=== PATIENT | male | born 1975 | race Caucasian/White ===

== ENCOUNTER 2022-11-05 21:57 | Emergency (ER) | payer MEDICARE, SELFPAY ==
[2022-11-05 22:05] VITALS: BP 130/82; PULSE 112; RESP 24; TEMP 36.6; O2SAT 98; BMI 25.7
--- NOTE | 2022-11-05 22:14 | PC.NURSE ---
Admission called asking is family could come back, let them know it was ok to let 1 person back.
[2022-11-05 22:16] LABS: Chloride 97 mmol/L (98-107); Potassium 3.8 mmoL/L (3.5-5.1); Sodium 140 mmol/L (136-145)
--- NOTE | 2022-11-05 22:16 | PC.NURSE ---
Pt pulled off his monitoring devices and walking into hallway stating since y'all are gonna let me in there and not let my family back I am leaving . He was refusing to let staff take him back to his room. We notified him that his family was told he can have a visitor and were only waiting for them to come back. He accused staff of not allowing his family back. Pt still had his IV in place and did allow us to escort him back to his room so we could removed the IV. rubber goods supervisor, SILVIO Vasques RN, at bedside with staff and assisting in de-escalating pt. His family then presented to room and we were able to place him back in bed and re-connected to the lunchroom monitor. Pt given a new gown, socks, ad several warm blankets. IV fluids also started since pt is now agreeing to stay.
[2022-11-05 22:19] LABS: Alanine Aminotransferase 34 U/L (12-78); Albumin Level 4.1 g/dl (3.5-5.0); Albumin/Globulin Ratio 1.7 (1.1-1.8); Alkaline Phosphatase 64 U/L (38-126); Anion Gap 19.8 mEq/L (5-15); Aspartate Amino Transferase 41 U/L (17-59); Bilirubin,Total 0.3 mg/dl (0.2-1.3); Blood Urea Nitrogen 13 mg/dl (9-20); Calcium 9.1 mg/dl (8.4-10.2); Carbon Dioxide 27 mmol/L (22.0-30.0); Creatinine Clearance Estimated 121 mL/min (50-200); Estimated Glomerular Filt Rate 90 ml/min (>60); GFR (African American) 109 ML/MIN (>60); Globulin 2.4 g/dL (1.3-3.2); Glucose 193 mg/dl (74-100); Total Protein,Serum 6.5 g/dl (6.3-8.2)
--- NOTE | 2022-11-05 22:24 | PC.NURSE ---
Police arrived to ED, contraband given to police and fire dispatcher by boiler house supervisor SILVIO Vasques
[2022-11-05 22:30] VITALS: BP 131/97; PULSE 112; RESP 14; O2SAT 98
--- NOTE | 2022-11-05 22:53 | XR_ITS ---
PROCEDURE INFORMATION: Exam: XR Chest Exam date and time: 11/05/2022 11:25 PM Age: 47 years old Clinical indication: Screening exam; Other screening; Additional info: Post overdose and narcan TECHNIQUE: Imaging protocol: Radiologic exam of the chest. Views: 1 view. COMPARISON: No relevant prior studies available. FINDINGS: Lungs: Mild left lower lung atelectasis. Pleural spaces: Unremarkable. No pleural effusion. No pneumothorax. Heart/Mediastinum: Unremarkable. No cardiomegaly. Bones/joints: Unremarkable. Gastrointestinal tract: Gaseous distention of the stomach. IMPRESSION: No acute findings.
[2022-11-05 23:00] VITALS: BP 111/77; RESP 14
--- NOTE | 2022-11-05 23:10 | PC.NURSE ---
RAD at for CXR
--- NOTE | 2022-11-05 23:22 | PC.NURSE ---
Pt provided with urinal. Urine sample obtained.
--- NOTE | 2022-11-05 23:25 | HMH.EDOD ---
Discharge Plan Disposition Patient Disposition: Home, Self-Care Condition: Good Prescriptions Prescriptions: New naloxone [Narcan] 4 mg/actuation spray,non-aerosol 4 mg intranasal Q2M PRN (Reason: opioid overdose) Qty: 2 0RF Rx Instructions: spray 1 dose into ONE nostril; alternate nostrils w each dose until help arrives Referrals Follow up/Referrals: Stephon Davalos MD [Primary Care Provider] - See instructions Activity Restrictions/Add. Instructions Additional Instructions/Restrictions: Recommend cessation from illegal drug substances. Fill the prescription for Narcan to have in the event of accidental overdose. Return to the ER for any new or worsening symptoms. Clinical Impressions Clinical Impression: Drug overdose Instructions Patient Instructions: DI for Drug Overdose in Adults Discharge ED Provider: Mikie Lozano Overdose HPI General Chief Complaint: Overdose Stated Complaint: overdose Time Seen by Provider: 11/05/22 22:00 Mode of Arrival: EMS Source of Information: Patient and EMS Limitations: No Limitations Description of Symptoms (Recalled from ER Triage Doc. by RN): Pt brought in by [facility] from home. found pt unresponsive with agonal nreathing when she got home. EMS gave 2mg Narcan iv and pt became responsive. Pt admits to snorting what he thought to be Heroin at 1700 this evening. States he has been depressed since his father's in [place] 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 Pt is a/o x 4 at this time. VSS. Complains of bilateral leg pain. History of Present Illness HPI Narrative: 47-year-old male brought in by [facility] found at home found the patient unresponsive minimally breathing EMS reports that he was found agonal with bag valve ventilations given 2 mg of IV Narcan which then induced becoming responsive. Patient states that he snorted what he thought was heroin and 5:00 this evening. States he was using it to try to treat leg pain. He has chronic leg pain and cramps. He has no pain at this time states that he had no intention of hurting himself with this overdose. Denies IV drug use denies recent illnesses fevers chills. Related Data Previous Rx's Medication Instructions Recorded naloxone 4 mg/actuation nasal 4 mg intranasal Q2M PRN opioid 11/06/22 spray (Narcan) overdose #2 ea Allergies Allergy/AdvReac Type Severity Reaction Status Date / Time INGREDIENT: NO KNOWN - NO Allergy Unknown Uncoded 06/25/17 15:16 KNOWN DRUG ALLERGY PFSH [facility] Disclaimer: The information contained in this section may have been updated after the patient was seen, as this information can be updated by other users. Social History Smoking Status: Current every day smoker alcohol intake: current current occupational status: unemployed Travel in the last 8 weeks: None ROS Obtained: Yes Systems reviewed as appropriate & no additional complaints except as documented Physical Exam General General appearance: alert and in no apparent distress Head Head exam: atraumatic Eye Eye exam: Present normal appearance and PERRL ENT ENT exam: Present mucous membranes moist Neck Neck exam: Present trachea midline Chest Chest inspection: Present symmetric chest wall rise Respiratory Respiratory exam: Present normal lung sounds bilaterally; Absent respiratory distress, wheezes or stridor Cardiovascular Cardiovascular exam: Present tachycardia Abdominal Exam Abdominal exam: Present soft; Absent distention Extremities Exam Extremities exam: Absent edema Neurological Exam Neurological exam: Present alert and oriented X3 Skin Skin exam: Present warm, dry and intact Medical Decision Making Medical Records Medical records reviewed: Yes I reviewed the patient's medical records. Manolo Inquiry Pt receiving controlled substance: No Vital Signs: 11/05/22 22:05 11/05/22 22:30 11/05/22 23:00
[2022-11-05 23:30] VITALS: BP 117/86; PULSE 91; RESP 17; O2SAT 98
[2022-11-05 23:41] LABS: Barbiturates Screen,Urine Negative ng/ml (<200)
[2022-11-05 23:42] LABS: Benzodiazepines Screen,Urine Negative ng/ml (<200)
[2022-11-05 23:43] LABS: Cannabinoid Screen,Urine Negative ng/ml (<50); Cocaine Screen,Urine Negative ng/ml (<300)
[2022-11-05 23:44] LABS: Methadone Screen,Urine Negative ng/ml (<300)
[2022-11-05 23:45] LABS: Opiate Screen,Urine Negative ng/ml (<300)
[2022-11-05 23:46] LABS: Phencyclidine Screen,Urine Negative ng/ml (<25)
--- NOTE | 2022-11-05 23:56 | PC.NURSE ---
Dr. Lozano at to speak with pt/family about results
[2022-11-06] VITALS: BP 111/70; PULSE 88; RESP 12; O2SAT 95
[2022-11-06 00:10] LABS: Amphetamine/Metha Screen,Urine Positive ng/ml (<1000)
[2022-11-06 00:15] VITALS: BP 111/70; PULSE 96; RESP 20; TEMP 36.7; O2SAT 98
== END 2022-11-06 00:23 | disposition home or self-care (01) ==
PROVIDERS: Emergency Provider Student in an Organized Health Care Education/Training Program; PCP Family Medicine
DX: T40.1X1A Poisoning by heroin, accidental (unintentional), initial encounter (principal); F17.200 Nicotine dependence, unspecified, uncomplicated
CPT/HCPCS: 71045; 80053; 80305; 96360; 99284

== ENCOUNTER → 2023-05-16 16:19 | Outpatient (CLI) | payer MEDICARE, SELFPAY ==
[2023-05-16 19:01] LABS: Basophils % 0.3 % (0.1-2.0); Eosinophils # 0.2 K/mm3 (0.0-0.4); Hematocrit 40.9 % (42.0-52.0); Hemoglobin 14.2 g/dL (14.1-18.0); Lymphocytes # 1.6 K/mm3 (0.7-4.5); Lymphocytes % 28.2 % (10-50); Mean Corpuscular HGB Conc 34.7 g/dL (31.8-35.4); Mean Corpuscular Hemoglobin 29.9 pg (27.0-31.2); Mean Corpuscular Volume 86.2 fl (80-94); Mean Platelet Volume 9.9 fl (7.4-10.4); Monocytes # 0.4 K/mm3 (0.1-1.0); Monocytes % 6.3 % (1.7-9.3); Neutrophils # 3.4 K/mm3 (1.8-7.8); Neutrophils % 61.1 % (37.0-80.0); Platelet Count 171 K/mm3 (142-424); Red Blood Count 4.75 M/mm3 (4.60-6.20); Red Cell Distribution Width 13.9 % (11.5-17.5); White Blood Count 5.6 K/mm3 (4.8-10.8)
[2023-05-16 19:18] LABS: Hemoglobin A1C 5.3 % (4.0-6.0)
[2023-05-16 20:25] LABS: Alanine Aminotransferase 22 U/L (12-78); Albumin Level 4.3 g/dl (3.5-5.0); Albumin/Globulin Ratio 1.7 (1.1-1.8); Alkaline Phosphatase 53 U/L (38-126); Anion Gap 10.6 mEq/L (5-15); Aspartate Amino Transferase 36 U/L (17-59); Bilirubin,Total 0.2 mg/dl (0.2-1.3); Blood Urea Nitrogen 13 mg/dl (9-20); Calcium 9.2 mg/dl (8.4-10.2); Carbon Dioxide 30 mmol/L (22.0-30.0); Chloride 102 mmol/L (98-107); Estimated Glomerular Filt Rate 102 ml/min (>60); GFR (African American) 124 ML/MIN (>60); Globulin 2.6 g/dL (1.3-3.2); Glucose 92 mg/dl (74-100); Potassium 4.6 mmoL/L (3.5-5.1); Sodium 138 mmol/L (136-145); Total Protein,Serum 6.9 g/dl (6.3-8.2)
[2023-05-16 21:11] LABS: Vitamin B12 702 pg/mL (239-931)
[2023-05-18 08:17] LABS: Testosterone,Total 365 ng/dL (264-916)
== END ==
PROVIDERS: PCP Family Medicine; Visit Provider Family Medicine
DX: E29.1 Testicular hypofunction (principal); R20.0 Anesthesia of skin; R73.9 Hyperglycemia, unspecified
CPT/HCPCS: 80053; 82607; 83036; 84403; 85025

== ENCOUNTER 2023-07-21 06:07 | Emergency (ER) | payer MEDICARE, SELFPAY ==
--- NOTE | 2023-07-21 06:05 | ECG_ITS ---
APPROVED REPORT Exam: Resting ECG HR:95 bpm ECG Measurements Heart Rate 95 AXES AR 163 P 70 QRSd 91 QRS 75 QT 343 T -1 QTc 396 Conclusion SINUS RHYTHM NONSPECIFIC T-WAVE ABNORMALITY ABNORMAL ECG UNCONFIRMED REPORT Electronically signed by : Flash Nuno MD 07/21/2023 15:10:29
[2023-07-21 06:08] VITALS: BP 160/107; PULSE 80; RESP 20; TEMP 36.6; O2SAT 99; BMI 25.0
[2023-07-21 06:13] VITALS: PULSE 80
--- NOTE | 2023-07-21 06:13 | CT_ITS ---
PROCEDURE INFORMATION: Exam: CT Thoracic Spine Without Contrast Exam date and time: 07/21/2023 8:19 AM Age: 48 years old Clinical indication: Other: Neck/chest pain rad down R arm/numbness; Additional info: Neck/chest pain radiating down R arm, numbness TECHNIQUE: Imaging protocol: Computed tomography of the thoracic spine without contrast. Radiation optimization: All CT scans at this facility use at least one of these dose optimization techniques: automated exposure control; mA and/or kV adjustment per patient size (includes targeted exams where dose is matched to clinical indication); or iterative reconstruction. COMPARISON: CT CERVICAL SPINE WO CON 07/21/2023 8:16 AM FINDINGS: Bones/joints: There is no evidence for acute thoracic fracture. Productive changes along the anterior thoracic Soft tissues: Unremarkable. IMPRESSION: No evidence of acute fracture
--- NOTE | 2023-07-21 06:13 | CT_ITS ---
PROCEDURE INFORMATION: Exam: CTA Neck With Contrast Exam date and time: 07/21/2023 8:23 AM Age: 48 years old Clinical indication: Pain; Other: Neck/chest rad down R arm/numbness; Additional info: Neck/chest pain radiating down R arm, numbness TECHNIQUE: Imaging protocol: Computed tomographic angiography of the neck with contrast. Exam focused on the cervical segments of the vasculature. 3D rendering (Not supervised by radiologist): MIP and/or 3D reconstructed images were created by the technologist. Radiation optimization: All CT scans at this facility use at least one of these dose optimization techniques: automated exposure control; mA and/or kV adjustment per patient size (includes targeted exams where dose is matched to clinical indication); or iterative reconstruction. Contrast material: ISOVUE; Contrast volume: 100 ml; Contrast route: INTRAVENOUS (IV); COMPARISON: CT CERVICAL SPINE WO CON 07/21/2023 8:16 AM FINDINGS: Right common carotid artery: No stenosis. No dissection or occlusion. Right internal carotid artery: No stenosis of the extracranial segment. No dissection or occlusion. Right external carotid artery: No occlusion or stenosis of the origin. Left common carotid artery: No stenosis. No dissection or occlusion. Left internal carotid artery: No stenosis of the extracranial segment. No dissection or occlusion. Left external carotid artery: No occlusion or stenosis of the origin. Right vertebral artery: No stenosis. No dissection or occlusion. Left vertebral artery: No stenosis. No dissection or occlusion. Soft tissues: Normal. No significant soft tissue swelling. Bones/joints: No acute fracture. IMPRESSION: Nondiagnostic CTA of the neck due to suboptimal contrast bolus timing. REFERENCES: NASCET CRITERIA. The degree of stenosis in the cervical segment of the internal carotid artery is based on NASCET criteria. Normal is no stenosis. Mild is less than 50% stenosis. Moderate is 50-69% stenosis. Severe is 70% to 99% stenosis. Total occlusion is no detectable patent lumen.
--- NOTE | 2023-07-21 06:13 | CT_ITS ---
PROCEDURE INFORMATION: Exam: CTA Chest With Contrast Exam date and time: 07/21/2023 8:27 AM Age: 48 years old Clinical indication: Right-sided and other: Neck/chest pain rad down R arm/numbness; Additional info: Neck/chest pain radiating down R arm, numbness TECHNIQUE: Imaging protocol: Computed tomographic angiography of the chest with contrast. Exam focused on the arteries. 3D rendering (Not supervised by radiologist): MIP and/or 3D reconstructed images were created by the technologist. Radiation optimization: All CT scans at this facility use at least one of these dose optimization techniques: automated exposure control; mA and/or kV adjustment per patient size (includes targeted exams where dose is matched to clinical indication); or iterative reconstruction. Contrast material: ISOVUE; Contrast volume: 100 ml; Contrast route: INTRAVENOUS (IV); COMPARISON: CR XR CHEST PORTABLE 11/05/2022 11:25 PM FINDINGS: Pulmonary arteries: Normal. No pulmonary emboli. Aorta: Unremarkable. No aortic aneurysm. No aortic dissection. Lungs: There is a 6 mm subpleural noncalcified nodule in the right lower lobe on series 7, image 58, 5 mm nodule the right lower lobe on series 7, image 51, 58 and 62. Right middle lobe streaky subsegmental atelectasis is noted. Pleural spaces: Unremarkable. No pneumothorax. No pleural effusion. Heart: Unremarkable. No cardiomegaly. No pericardial effusion. Coronary arteries: Coronary artery calcification is not definitely identified. Lymph nodes: Unremarkable. No enlarged lymph nodes. Bones/joints: Unremarkable. No acute fracture. Soft tissues: Unremarkable. IMPRESSION: No evidence for pulmonary embolism. Pulmonary nodules as described. Subsegmental atelectasis. For patients at low risk (minimal or absent history of smoking and of other known risk factors), no routine follow-up is indicated. For patients at high risk (history of smoking or of other known risk factors), consider optional CT Chest at 12 months. (Reference: Mayela) References: Mayela Perdue et al. Guidelines for Management of Incidental Pulmonary Nodules Detected on CT Images: From the Fleischner Society 2017. Radiology. 2017;284(1):228-243.
--- NOTE | 2023-07-21 06:13 | CT_ITS ---
PROCEDURE INFORMATION: Exam: CT Cervical Spine Without Contrast Exam date and time: 07/21/2023 8:16 AM Age: 48 years old Clinical indication: Neck pain and other: Rad down R arm/numbness; Additional info: Neck/chest pain radiating down R arm, numbness TECHNIQUE: Imaging protocol: Computed tomography of the cervical spine without contrast. Radiation optimization: All CT scans at this facility use at least one of these dose optimization techniques: automated exposure control; mA and/or kV adjustment per patient size (includes targeted exams where dose is matched to clinical indication); or iterative reconstruction. COMPARISON: CR XR CHEST PORTABLE 11/05/2022 11:25 PM FINDINGS: Bones/joints: No acute fracture or malalignment. Uncovertebral spurring and facet hypertrophy contribute to severe neural foraminal stenosis at C6-C7 on the right. Moderate degenerative disc disease at C6-C7. Posterior disc osteophyte complex contributes to mild spinal canal stenosis. Lungs: Lung apices are normal. Soft tissues: Unremarkable. IMPRESSION: 1. No acute fracture or malalignment. 2. Uncovertebral spurring and facet hypertrophy contribute to severe neural foraminal stenosis at C6-C7 on the right.
--- NOTE | 2023-07-21 06:16 | PC.NURSE ---
Pt gone to X-Ray
[2023-07-21] MEDS: ONDANSETRON 4MG/2ML VIAL 4 MG IV (06:18)
[2023-07-21] MEDS: MORPHINE 4MG/ML SYRINGE 4 MG IV (06:18)
[2023-07-21] MEDS: GABAPENTIN 300MG CAPSULE 300 MG PO (06:18)
--- NOTE | 2023-07-21 06:32 | [facility].EDCP ---
Discharge Plan Disposition Patient Disposition: Still a Patient Prescriptions Prescriptions: No Action naloxone [Narcan] 4 mg/actuation spray,non-aerosol 4 mg intranasal Q2M PRN (Reason: opioid overdose) Qty: 2 0RF Rx Instructions: spray 1 dose into ONE nostril; alternate nostrils w each dose until help arrives Referrals Follow up/Referrals: Juan Pablo Esposito DO [Staff Physician] - See instructions Provider,Referral, [Primary Care Provider] - See instructions Activity Restrictions/Add. 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 I recommend that you get an outpatient MRI please follow-up with your primary care doctor that you have been referred to to have this scheduled. Return with any significant worsening symptoms specifically any motor weakness in your upper extremity. No evidence right now of any central cord compression from a clinical standpoint that would require emergent neurosurgical intervention. Would also recommend that you go ahead make an appointment with a spine surgeon of your choosing to follow-up on your MRI results and discussion of management. Clinical Impressions Clinical Impression: Neck pain, Acute pain of right shoulder, Right-sided chest pain, Cervical radiculopathy Discharge ED Provider: Shivani Araya [facility] <Shivani Araya DO - Last Filed: 07/21/23 06:50> General Chief Complaint: Chest Pain Stated Complaint: chest pain, right arm pain Time Seen by Provider: 07/21/23 06:09 Mode of Arrival: Ambulatory Source of Information: Patient and Spouse Limitations: No Limitations Description of Symptoms (Recalled from ER Triage Doc. by RN): Patient reports right arm and chest pain that started yesterday and has progressively worsened to tonight. Pain is now a 10/10 and unrelieved by medication at home. Patient took Goody's powder just before arrival. History of Present Illness HPI narrative: This patient is a 48-year-old male with a history of substance abuse and prior brain injury presenting to the emergency department for evaluation with concern for chest pain as well as neck pain, right shoulder pain, and right arm pain and numbness. He notes that started approximately 2 days ago. He states that it got worse overnight last night and through this morning. Pain is a 10 out of 10. He took Goody powders at home without any improvement. He states that the pain is on the right side of his chest and seems to be radiating from his neck. No recent injuries noted, but he noted that he did feel a pop in his neck when he bent down the other day. Related Data Previous Rx's Medication Instructions Recorded naloxone 4 mg/actuation nasal 4 mg intranasal Q2M PRN opioid 11/06/22 spray (Narcan) overdose #2 ea Allergies Allergy/AdvReac Type Severity Reaction Status Date / Time INGREDIENT: NO KNOWN - NO Allergy Unknown Uncoded 06/25/17 15:16 KNOWN DRUG ALLERGY PFSH <Shivani Araya DO - Last Filed: 07/21/23 06:50> [facility] Disclaimer: The information contained in this section may have been updated after the patient was seen, as this information can be updated by other users. Social History Smoking Status: Current every day smoker alcohol intake: current current occupational status: unemployed Travel in the last 8 weeks: None <Shivani Araya DO - Last Filed: 07/21/23 06:50> ROS Obtained: Yes All systems reviewed & no additional complaints except as documented Physical Exam <Shivani Araya DO - Last Filed: 07/21/23 06:50> General General appearance: alert and in no apparent distress Head Head exam: atraumatic and normocephalic Eye Eye exam: Present normal appearance, PERRL and EOMI ENT ENT exam: Present normal exam, normal oropharynx, mucous membranes moist and normal external ear exam Neck Neck exam: Present normal inspection, full ROM, trachea midline and tenderness (posterior midline/right sided); Absent meningismus or lymphadenopathy Chest Chest inspection: Present normal inspection, symmetric chest wall rise and tenderness (R chest) Respiratory Respiratory exam: Present normal lung sounds bilaterally; Absent respiratory distress, wheezes, stridor or accessory muscle use Cardiovascular Cardiovascular exam: Present regular rate and normal rhythm Abdominal Exam Abdominal exam: Present soft; Absent distention, tenderness or guarding Extremities Exam Extremities exam: Present normal inspection, full ROM, normal capillary refill and other (intact ROM of RUE); Absent tenderness or edema Back Exam Back exam: Present normal inspection and full ROM; Absent tenderness Neurological Exam Neurological exam: Present alert, oriented X3, CN II-XII intact, normal gait and other (no true numbness/motor deficits of RUE); Absent motor sensory deficit Psychiatric Psychiatric exam: Present normal affect and normal mood Skin Skin exam: Present warm and dry HEART Score <Shivani Araya DO - Last Filed: 07/21/23 06:50> HEART Score HEART Score assessment performed?: No <Tomer Mccoy MD - Last Filed: 07/21/23 09:47> HEART Score History (anamnesis): Slightly suspicious ECG: Normal Age: 45-65 years Risk factors: No known risk factors Troponin: </= normal limit HEART Score: 1 Critical Care <Shivani Araya DO - Last Filed: 07/21/23 06:50> Critical Care Time Critical Care Time: No Medical Decision Making <Shivani Araya DO - Last Filed: 07/21/23 06:50> Medical Records Medical records reviewed: Yes I reviewed the patient's medical records. Manolo Inquiry Pt receiving controlled substance: No Vital Signs Vital Signs: 07/21/23 06:08 07/21/23 06:13 07/21/23 08:46 Temperature 97.8 F Temperature Source Oral Pulse Rate 80 72 Pulse Rate [Left Radial] 80 Respiratory Rate 20 Blood Pressure 159/102 H Blood Pressure [Right Arm] 160/107 H Blood Pressure Mean [Right Arm] 124 Blood Pressure Source [Right Arm] Automatic Cuff Blood Pressure Position [Right Arm] Sitting 02 Sat by Pulse Oximetry 99 99 Oxygen Delivery Method Room Air Room Air 07/21/23 09:00 Temperature Temperature Source Pulse Rate 62 Pulse Rate [Left Radial] Respiratory Rate Blood Pressure 151/103 H Blood Pressure [Right Arm] Blood Pressure Mean [Right Arm] Blood Pressure Source [Right Arm] Blood Pressure Position [Right Arm] 02 Sat by Pulse Oximetry 98 Oxygen Delivery Method Room Air Lab Data Labs: Lab Results 07/21/23 06:10: WBC 7.5, RBC 5.38, Hgb 16.0, Hct 46.9, MCV 87.0, MCH 29.7, MCHC 34.1, RDW 14.2, Plt Count 209, MPV 10.5 H, Neut % (Auto) 64.5, Lymph % (Auto) 25.0, Orange % (Auto) 6.2, Eos % (Auto) 3.6, Baso % (Auto) 0.7, Neut # (Auto) 4.8, Lymph # (Auto) 1.9, Orange # (Auto) 0.5, Eos # (Auto) 0.3, Baso # (Auto) 0.1, Sodium 144, Potassium 3.7, Chloride 106, Carbon Dioxide 31 H, Anion Gap 10.7, BUN 15, Creatinine 1.00, Estimated Creat Clear 105, Estimated GFR 79, Est GFR ( Amer) 96, Glucose 96, Calcium 9.7, Total Bilirubin 0.5, AST 37, ALT 28, Alkaline Phosphatase 75, Troponin I < 0.01, Total Protein 8.4 H, Albumin 5.0, Globulin 3.4 H, Albumin/Globulin Ratio 1.5 07/21/23 09:00: Troponin I < 0.01 07/21/23 06:10 07/21/23 06:10 Response Orders (Tests/Meds): ED MEDICATIONS Discontinued Medications Generic Name Dose Route Start Last Admin Trade Name Freq PRN Reason Stop Dose Admin Acetaminophen 1,000 mg 07/21/23 06:36 07/21/23 06:54 Acetaminophen 500mg Tab PO 07/21/23 06:37 1,000 mg ONCE ONE Administration Gabapentin 300 mg 07/21/23 06:14 07/21/23 06:18 Gabapentin 300mg Capsule PO 07/21/23 06:15 300 mg ONCE ONE Administration Iopamidol 200 ml 07/21/23 08:38 07/21/23 08:39 Iopamidol-370 (76%);100ml Bottle IV 07/21/23 08:39 200 ml ONCE ONE Administration Ketorolac Tromethamine 15 mg 07/21/23 06:36 07/21/23 06:53 Ketorolac 30mg/Ml Vial IV 07/21/23 06:37 15 mg ONCE ONE Administration Methocarbamol 500 mg 07/21/23 06:37 07/21/23 06:53 Methocarbamol 500mg Tablet PO 07/21/23 06:38 500 mg ONCE ONE Administration Morphine Sulfate 4 mg 07/21/23 06:14 07/21/23 06:18 Morphine 4mg/Ml Syringe IV 07/21/23 06:15 4 mg ONCE ONE Administration Ondansetron HCl 4 mg 07/21/23 06:14 07/21/23 06:18 Ondansetron 4mg/2ml Vial IV 07/21/23 06:15 4 mg ONCE ONE Administration Sodium Chloride 50 ml 07/21/23 08:38 07/21/23 08:39 0.9 % Sodium Chloride 50 Ml Vial IV 07/21/23 08:39 50 ml ONCE ONE Administration Sodium Chloride 10 ml 07/21/23 08:38 07/21/23 08:39 Sodium Chloride 0.9% 10ml Syr (Rad Only) IV 07/21/23 08:39 10 ml ONCE ONE Administration ORDERS Category Date Time Status CT angio chest - dissection Stat Cat Scan 07/21/23 06:[address] angio neck Stat Cat Scan 07/21/23 06:[address] cervical spine wo con Stat Cat Scan 07/21/23 06:[address] thoracic spine wo con Stat Cat Scan 07/21/23 06:13 Completed Complete Blood Count Auto Diff Stat Lab 07/21/23 06:10 Completed Comprehensive Metabolic Panel Stat Lab 07/21/23 06:10 Completed Troponin I Q3H Lab 07/21/23 09:00 Completed Troponin I Q3H Lab 07/21/23 12:15 Ordered Troponin I Stat Lab 07/21/23 06:10 Completed ECG Data Tracing #1: Attestation: I reviewed this ECG and interpreted as documented below: ECG Narrative: Normal sinus rhythm with a ventricular rate of [address]/T wave changes in the inferior leads. No prior EKG available for comparison. Does not meet STEMI criteria. ECG initial impression date: 07/21/23 ECG initial impression time: 06:07 MDM Narrative Medical Decision Narrative: In summary, this patient is a 48-year-old male presenting to the Emergency Department for evaluation of neck pain, right shoulder pain, right chest pain, and right upper extremity pain/ tingling. Differential diagnoses considered include but are not limited to cervical radiculopathy, carotid dissection, aortic dissection, ACS, musculoskeletal strain/sprain. Ruling out the most morbid conditions drove assessment. On exam, the patient has no focal neurologic deficits. Cardiopulmonary exam and vitals are reassuring. Workup included CBC, CMP, troponin, and CTs of the C-spine/T-spine without contrast as well as CTA of the chest and neck. He was given IV morphine, Zofran, and oral gabapentin for symptomatic improvement of pain. He stated that this did not improve his symptoms at all. He was given Tylenol, IV Toradol, and Robaxin for symptomatic improvement. EKG demonstrates nonspecific changes with no STEMI criteria. Patient care signed out to the oncoming provider, Dr. Mccoy, pending labs, CT, and disposition. [HEART SCORE] <Tomer Mccoy MD - Last Filed: 07/21/23 09:47> Vital Signs Vital Signs: 07/21/23 06:08 07/21/23 06:13 07/21/23 08:46 Temperature 97.8 F Temperature Source Oral Pulse Rate 80 72 Pulse Rate [Left Radial] 80 Respiratory Rate 20 Blood Pressure 159/102 H Blood Pressure [Right Arm] 160/107 H Blood Pressure Mean [Right Arm] 124 Blood Pressure Source [Right Arm] Automatic Cuff Blood Pressure Position [Right Arm] Sitting 02 Sat by Pulse Oximetry 99 99 Oxygen Delivery Method Room Air Room Air 07/21/23 09:00 Temperature Temperature Source Pulse Rate 62 Pulse Rate [Left Radial] Respiratory Rate Blood Pressure 151/103 H Blood Pressure [Right Arm] Blood Pressure Mean [Right Arm] Blood Pressure Source [Right Arm] Blood Pressure Position [Right Arm] 02 Sat by Pulse Oximetry 98 Oxygen Delivery Method Room Air Lab Data Lab results reviewed: Yes I reviewed the patient's lab results. Labs: Lab Results 07/21/23 06:10: WBC 7.5, RBC 5.38, Hgb 16.0, Hct 46.9, MCV 87.0, MCH 29.7, MCHC 34.1, RDW 14.2, Plt Count 209, MPV 10.5 H, Neut % (Auto) 64.5, Lymph % (Auto) 25.0, Orange % (Auto) 6.2, Eos % (Auto) 3.6, Baso % (Auto) 0.7, Neut # (Auto) 4.8, Lymph # (Auto) 1.9, Orange # (Auto) 0.5, Eos # (Auto) 0.3, Baso # (Auto) 0.1, Sodium 144, Potassium 3.7, Chloride 106, Carbon Dioxide 31 H, Anion Gap 10.7, BUN 15, Creatinine 1.00, Estimated Creat Clear 105, Estimated GFR 79, Est GFR ( Amer) 96, Glucose 96, Calcium 9.7, Total Bilirubin 0.5, AST 37, ALT 28, Alkaline Phosphatase 75, Troponin I < 0.01, Total Protein 8.4 H, Albumin 5.0, Globulin 3.4 H, Albumin/Globulin Ratio 1.5 07/21/23 09:00: Troponin I < 0.01 Response Orders (Tests/Meds): ED MEDICATIONS Discontinued Medications Generic Name Dose Route Start Last Admin Trade Name Mahsa PRN Reason Stop Dose Admin Acetaminophen 1,000 mg 07/21/23 06:36 07/21/23 06:54 Acetaminophen 500mg Tab PO 07/21/23 06:37 1,000 mg ONCE ONE Administration Gabapentin 300 mg 07/21/23 06:14 07/21/23 06:18 Gabapentin 300mg Capsule PO 07/21/23 06:15 300 mg ONCE ONE Administration Iopamidol 200 ml 07/21/23 08:38 07/21/23 08:39 Iopamidol-370 (76%);100ml Bottle IV 07/21/23 08:39 200 ml ONCE ONE Administration Ketorolac Tromethamine 15 mg 07/21/23 06:36 07/21/23 06:53 Ketorolac 30mg/Ml Vial IV 07/21/23 06:37 15 mg ONCE ONE Administration Methocarbamol 500 mg 07/21/23 06:37 07/21/23 06:53 Methocarbamol 500mg Tablet PO 07/21/23 06:38 500 mg ONCE ONE Administration Morphine Sulfate 4 mg 07/21/23 06:14 07/21/23 06:18 Morphine 4mg/Ml Syringe IV 07/21/23 06:15 4 mg ONCE ONE Administration Ondansetron HCl 4 mg 07/21/23 06:14 07/21/23 06:18 Ondansetron 4mg/2ml Vial IV 07/21/23 06:15 4 mg ONCE ONE Administration Sodium Chloride 50 ml 07/21/23 08:38 07/21/23 08:39 0.9 % Sodium Chloride 50 Ml Vial IV 07/21/23 08:39 50 ml ONCE ONE Administration Sodium Chloride 10 ml 07/21/23 08:38 07/21/23 08:39 Sodium Chloride 0.9% 10ml Syr (Rad Only) IV 07/21/23 08:39 10 ml ONCE ONE Administration ORDERS Category Date Time Status CT angio chest - dissection Stat Cat Scan 07/21/23 06:[address] angio neck Stat Cat Scan 07/21/23 06:[address] cervical spine wo con Stat Cat Scan 07/21/23 06:[address] thoracic spine wo con Stat Cat Scan 07/21/23 06:13 Completed Complete Blood Count Auto Diff Stat Lab 07/21/23 06:10 Completed Comprehensive Metabolic Panel Stat Lab 07/21/23 06:10 Completed Troponin I Q3H Lab 07/21/23 09:00 Completed Troponin I Q3H Lab 07/21/23 12:15 Ordered Troponin I Stat Lab 07/21/23 06:10 Completed MDM Narrative Medical Decision Narrative: In summary, this patient is a 48-year-old male presenting to the Emergency Department for evaluation of neck pain, right shoulder pain, right chest pain, and right upper extremity pain/ tingling. Differential diagnoses considered include but are not limited to cervical radiculopathy, carotid dissection, aortic dissection, ACS, musculoskeletal strain/sprain. Ruling out the most morbid conditions drove assessment. On exam, the patient has no focal neurologic deficits. Cardiopulmonary exam and vitals are reassuring. Workup included CBC, CMP, troponin, and CTs of the C-spine/T-spine without contrast as well as CTA of the chest and neck. He was given IV morphine, Zofran, and oral gabapentin for symptomatic improvement of pain. He stated that this did not improve his symptoms at all. He was given Tylenol, IV Toradol, and Robaxin for symptomatic improvement. EKG demonstrates nonspecific changes with no STEMI criteria. Patient care signed out to the oncoming provider, Dr. Mccoy, pending labs, CT, and disposition. [HEART SCORE] [address] Mccoy at 9:43 AM I took over from Dr. Araya pending CT scans and laboratory evaluation. Patient initially was unable to lay down because he had some discomfort in his right upper extremity but after medications had affected patient slept the remainder of the time in the emergency department but was arousable and had a normal neurovascular exam for me after this specifically no evidence of any right upper extremity motor weakness and otherwise his median ulnar radial nerves were normal from a sensation and motor standpoint and he had normal pulses. This not consistent with a cardiovascular emergency. Heart score was 1 EKG was nonischemic I do not suspect this is referred pain. He has pain radiating from his right lateral aspect of his neck down into his arm consistent with cervical radiculopathy CT scans were performed which did not show any acute emergent medical conditions however CT scan of the cervical spine did show some spurring and facet hypertrophy that contribute to severe neuroforaminal stenosis at C6 and C7 which I explained to the patient needs to follow-up outpatient to get an MRI also advised to get physical therapy and follow-up with a spine surgeon. He was discharged in stable condition.
[2023-07-21 06:44] LABS: Basophils # 0.1 K/mm3 (0-0.2); Basophils % 0.7 % (0.1-2.0); Eosinophils # 0.3 K/mm3 (0.0-0.4); Eosinophils % 3.6 % (0.1-12.0); Hematocrit 46.9 % (42.0-52.0); Lymphocytes # 1.9 K/mm3 (0.7-4.5); Mean Corpuscular HGB Conc 34.1 g/dL (31.8-35.4); Mean Corpuscular Hemoglobin 29.7 pg (27.0-31.2); Mean Platelet Volume 10.5 fl (7.4-10.4); Monocytes # 0.5 K/mm3 (0.1-1.0); Monocytes % 6.2 % (1.7-9.3); Neutrophils # 4.8 K/mm3 (1.8-7.8); Neutrophils % 64.5 % (37.0-80.0); Platelet Count 209 K/mm3 (142-424); Red Blood Count 5.38 M/mm3 (4.60-6.20); Red Cell Distribution Width 14.2 % (11.5-17.5); White Blood Count 7.5 K/mm3 (4.8-10.8)
[2023-07-21 06:48] LABS: Chloride 106 mmol/L (98-107); Sodium 144 mmol/L (136-145)
[2023-07-21 06:49] LABS: Potassium 3.7 mmoL/L (3.5-5.1)
[2023-07-21 06:51] LABS: Alanine Aminotransferase 28 U/L (12-78); Albumin/Globulin Ratio 1.5 (1.1-1.8); Alkaline Phosphatase 75 U/L (38-126); Anion Gap 10.7 mEq/L (5-15); Aspartate Amino Transferase 37 U/L (17-59); Bilirubin,Total 0.5 mg/dl (0.2-1.3); Blood Urea Nitrogen 15 mg/dl (9-20); Carbon Dioxide 31 mmol/L (22.0-30.0); Creatinine Clearance Estimated 105 mL/min (50-200); Estimated Glomerular Filt Rate 79 ml/min (>60); GFR (African American) 96 ML/MIN (>60); Globulin 3.4 g/dL (1.3-3.2); Total Protein,Serum 8.4 g/dl (6.3-8.2)
[2023-07-21 06:52] LABS: Calcium 9.7 mg/dl (8.4-10.2); Glucose 96 mg/dl (74-100)
[2023-07-21] MEDS: METHOCARBAMOL 500MG TABLET 500 MG PO (06:53)
[2023-07-21] MEDS: KETOROLAC 30MG/ML VIAL 15 MG IV (06:53)
[2023-07-21] MEDS: ACETAMINOPHEN 500MG TAB 1000 MG PO (06:54)
[2023-07-21 07:06] LABS: Troponin I < 0.01 ng/ml (0.00-0.034)
--- NOTE | 2023-07-21 07:10 | PC.NURSE ---
Patient to CT at this time
--- NOTE | 2023-07-21 07:41 | PC.NURSE ---
Pt unable to tolerate CT due to pain at this time. Pt brought back to room. Dr. Mccoy at to evaluate pt
--- NOTE | 2023-07-21 08:12 | PC.NURSE ---
Pt gone to RAD via wheelchair
--- NOTE | 2023-07-21 08:33 | PC.NURSE ---
Pt returned from RAD
[2023-07-21] MEDS: 0.9 % SODIUM CHLORIDE 50 ML VIAL IV (08:39)
[2023-07-21] MEDS: IOPAMIDOL-370 (76%);100ML BOTTLE 200 ML IV (08:39)
[2023-07-21] MEDS: SODIUM CHLORIDE 0.9% 10ML SYR (RAD ONLY) 10 ML IV (08:39)
[2023-07-21 08:46] VITALS: BP 159/102; PULSE 72; O2SAT 99
[2023-07-21 09:00] VITALS: BP 151/103; PULSE 62; O2SAT 98
--- NOTE | 2023-07-21 09:01 | PC.NURSE ---
Second trop drawn and sent to LAB
[2023-07-21 09:32] LABS: Troponin I < 0.01 ng/ml (0.00-0.034)
--- NOTE | 2023-07-21 09:40 | PC.NURSE ---
Dr. Mccoy at BS to update pt on results
[2023-07-21 09:42] VITALS: BP 133/63; PULSE 56; RESP 18; TEMP 36.7; O2SAT 98
== END 2023-07-21 09:44 | disposition home or self-care (01) ==
PROVIDERS: Emergency Provider Emergency Medicine
DX: R07.89 Other chest pain (principal); M54.2 Cervicalgia; M54.12 Radiculopathy, cervical region; M25.511 Pain in right shoulder
CPT/HCPCS: 70498; 71275; 72125; 72128; 80053; 84484; 85025; 93005; 96374; 96375; 99285; J2405; Q9967

== ENCOUNTER 2023-12-13 15:48 | Outpatient (CLI) | payer MEDICARE, SELFPAY ==
[2023-12-13 16:22] LABS: Basophils # 0.1 K/mm3 (0-0.2); Basophils % 1.1 % (0.1-2.0); Eosinophils # 0.2 K/mm3 (0.0-0.4); Eosinophils % 3.3 % (0.1-12.0); Hematocrit 39.1 % (42.0-52.0); Hemoglobin 13.2 g/dL (14.1-18.0); Lymphocytes # 1.9 K/mm3 (0.7-4.5); Lymphocytes % 27.1 % (10-50); Mean Corpuscular HGB Conc 33.9 g/dL (31.8-35.4); Mean Corpuscular Hemoglobin 29.1 pg (27.0-31.2); Mean Platelet Volume 9.8 fl (7.4-10.4); Monocytes # 0.4 K/mm3 (0.1-1.0); Monocytes % 5.5 % (1.7-9.3); Neutrophils # 4.5 K/mm3 (1.8-7.8); Platelet Count 167 K/mm3 (142-424); Red Blood Count 4.54 M/mm3 (4.60-6.20); Red Cell Distribution Width 14.3 % (11.5-17.5); White Blood Count 7.1 K/mm3 (4.8-10.8)
[2023-12-13 16:43] LABS: Alanine Aminotransferase 25 U/L (12-78); Albumin Level 4.2 g/dl (3.5-5.0); Albumin/Globulin Ratio 1.5 (1.1-1.8); Alkaline Phosphatase 78 U/L (38-126); Anion Gap 11.4 mEq/L (5-15); Aspartate Amino Transferase 29 U/L (17-59); Bilirubin,Total 0.3 mg/dl (0.2-1.3); Blood Urea Nitrogen 17 mg/dl (9-20); Calcium 9.8 mg/dl (8.4-10.2); Carbon Dioxide 29 mmol/L (22.0-30.0); Chloride 102 mmol/L (98-107); Chol/HDL Ratio 4.6 (1-3.5); Cholesterol 174 mg/dl (140-200); Estimated Glomerular Filt Rate 119 ml/min (>60); GFR (African American) 144 ML/MIN (>60); Globulin 2.8 g/dL (1.3-3.2); Glucose 98 mg/dl (74-100); HDL Cholesterol 38 mg/dl (40-60); Magnesium 1.8 mg/dl (1.6-2.3); Potassium 4.4 mmoL/L (3.5-5.1); Sodium 138 mmol/L (136-145); Triglycerides 288 mg/dl (30-150); VLDL Cholesterol 58 mg/dL (0-40)
[2023-12-13 16:54] LABS: Direct LDL Cholesterol 90.33 mg/dL (100-129)
[2023-12-13 17:04] LABS: 25-OH Vitamin D, Total 28.7 ng/mL (30-100)
[2023-12-13 17:35] LABS: Hemoglobin A1C 5.1 % (4.0-6.0); Vitamin B12 752 pg/mL (239-931)
== END 2023-12-13 23:59 | disposition home or self-care (01) ==
PROVIDERS: PCP Physician Assistant; Visit Provider Physician Assistant
DX: R60.0 Localized edema (principal); R73.9 Hyperglycemia, unspecified; Z79.899 Other long term (current) drug therapy; E55.9 Vitamin D deficiency, unspecified; F43.10 Post-traumatic stress disorder, unspecified; G56.01 Carpal tunnel syndrome, right upper limb; W55.03XA Scratched by cat, initial encounter; Z83.438 Family history of other disorder of lipoprotein metabolism and other lipidemia
CPT/HCPCS: 36415; 80050; 80053; 80061; 82306; 82607; 83036; 83735; 84443; 85025